=== PATIENT | female | born 1950 | race Native Hawaiian/Other Pacific Islander ===

== ENCOUNTER 2022-06-03 12:18 | Outpatient (CLI) | payer OTHER ==
[2022-06-03 13:51] LABS: PLATELET COUNT 342 K/uL (152-353)
[2022-06-03 14:03] LABS: POTASSIUM 4.1 mmol/L (3.6-5.2)
== END 2022-06-03 19:05 | disposition home or self-care (01) ==
LOC: LAB 12:18
PROVIDERS: ATTEND Internal Medicine
DX: E78.2 Mixed hyperlipidemia (principal); E03.8 Other specified hypothyroidism; Z86.39 Personal history of other endocrine, nutritional and metabolic disease; E55.9 Vitamin D deficiency, unspecified; R82.998 Other abnormal findings in urine; Z09 Encounter for follow-up examination after completed treatment for conditions other than malignant neoplasm
CPT/HCPCS: 80053; 80061; 81000; 82306; 84439; 84443; 85027; 87077; 87086; 87088; 87186

== ENCOUNTER 2022-06-08 09:58 | Outpatient (CLI) | payer OTHER | END 2022-06-08 19:31 | disposition home or self-care (01) | LOC: RAD 09:58 | PROVIDERS: ATTEND Internal Medicine | DX: Z78.0 Asymptomatic menopausal state (principal) ==

== ENCOUNTER 2023-06-01 14:13 | Outpatient (CLI) | payer OTHER ==
[2023-06-01 14:36] LABS: PLATELET COUNT 355 K/uL (152-353)
[2023-06-01 15:13] LABS: POTASSIUM 4.3 mmol/L (3.6-5.2)
== END 2023-06-01 19:27 | disposition home or self-care (01) ==
LOC: LAB 14:13 → EDSTATUS 14:14 → LAB 19:27
PROVIDERS: ATTEND Internal Medicine
DX: Z00.00 Encounter for general adult medical examination without abnormal findings (principal); Z13.820 Encounter for screening for osteoporosis; E55.9 Vitamin D deficiency, unspecified; Z79.899 Other long term (current) drug therapy
CPT/HCPCS: 80053; 80061; 82306; 84439; 84443; 85027